=== PATIENT | female | born 2000 | race African-American/Black ===

== ENCOUNTER 2023-03-22 21:41 | Emergency (ER) | payer MEDICAID ==
[~2023-03-22] VITALS: Ht 165.1 cm; Wt 54.8 kg
[2023-03-22 21:47] VITALS: TEMP 98.6; O2SAT 98
[2023-03-22 22:52] LABS: CLARITY URINE CLOUDY (CLEAR); COLOR URINE YELLOW (YELLOW); GLUCOSE URINE NEGATIVE (NEGATIVE); KETONES URINE 1+ (NEGATIVE); LEUKOCYTE ESTERASE URINE 1+ (NEGATIVE); NITRITE URINE NEGATIVE (NEGATIVE); OCCULT BLOOD URINE 3+ (NEGATIVE); PH URINE 7.5 (4.5-8.0); PROTEIN URINE 1+ (NEGATIVE); SPECIFIC GRAVITY URINE 1.022 (1.005-1.030)
[2023-03-22 22:53] LABS: BASOPHILS % 0.5 % (0.0-2.0); EOSINOPHILS % 0.3 % (0.0-5.0); HEMATOCRIT. 37.9 % (36.0-48.0); HEMOGLOBIN. 12.6 g/dL (12.0-16.0); LYMPHOCYTES % 18.1 % (20.0-50.0); MEAN CORPUSCULAR HEMOGLOBIN 30.1 pg (28.0-32.0); MEAN CORPUSCULAR HGB CONC 33.2 g/dL (31.0-37.0); MEAN CORPUSCULAR VOLUME 90.8 fL (81.0-99.0); MEAN PLATELET VOLUME 9.3 fl (7.4-10.4); MONOCYTES % 5.8 % (2.0-8.0); NEUTROPHILS % 75.3 % (40.0-76.0); PLATELET 233 x1000/uL (130-400); RED BLOOD CELL COUNT 4.17 mill/uL (4.2-5.4); RED CELL DISTRIBUTION WIDTH 13.5 % (11.6-14.6); WHITE BLOOD COUNT 8.5 x1000/uL (4.5-11.0)
[2023-03-22 22:56] LABS: CHLORIDE 110 mEq/L (98-107); INDEX HEMOLYSI 1 (1-3); INDEX ICTERIC 1 (1-4); INDEX LIPEMIC 1 (1-3); POTASSIUM 3.3 mEq/L (3.5-5.1); SODIUM 136 mEq/L (136-145)
[2023-03-22] MEDS ORDERED: ONDANSETRON HCL 4MG/2ML INJ IV ONE (23:00)
[2023-03-22] MEDS ORDERED: MORPHINE SULFATE 2 MG/ML CPJ (NOT FOR IM USE) IV ONE (23:00)
[2023-03-22 23:04] LABS: B-HCG QUANTITATIVE < 1 mIU/mL (<3); CARBON DIOXIDE 22 mEq/L (21-32); CREATININE 0.7 mg/dL (0.6-1.3); GLUCOSE 103 mg/dL (70-105); UREA NITROGEN BLOOD 5 mg/dL (7-21)
[2023-03-22 23:15] LABS: BACTERIA URINE 2+; RBC URINE TNTC /hpf (0-2); SQUAMOUS EPITHELIAL CELL URINE 1+ /lpf (RARE/1+)
[2023-03-23] MEDS ORDERED: CEPH500C2 MT (00:20)
[2023-03-23] MEDS ORDERED: KETOROLAC 15MG/ML VIAL IV ONE (01:15)
[2023-03-23 01:35] VITALS: BP 127/84; PULSE 83; RESP 12
== END 2023-03-23 01:35 | disposition home or self-care (01) ==
LOC: ER 21:58
DX: R10.30 Lower abdominal pain, unspecified (principal); J45.909 Unspecified asthma, uncomplicated
CPT/HCPCS: 99285; 96374; 96375 ×2; 80048; 81003; 81025; 84702; 85025; 86850; 86900; 86901; 36415; J2405; J2270; J1885